=== PATIENT | female | born 1985 | race Caucasian/White ===

== ENCOUNTER 2024-06-16 11:40 | Outpatient (OUT) | payer MEDICARE, SELFPAY ==
[2024-06-16 13:20] LABS: Alanine Aminotransferase 22 U/L (14-59); Albumin Globulin Ratio 1.1; Albumin Level 3.9 g/dL (3.4-5.0); Alkaline Phosphatase 87 U/L (46-116); Anion Gap 12.8; Aspartate Amino Transferase 15 U/L (15-37); BUN Creatinine Ratio 7.5; Bilirubin Total 0.3 mg/dL (0.2-1.0); Calcium 9.1 mg/dL (8.5-10.1); Carbon Dioxide 28.1 mmol/L (21.0-32.0); Chloride 104 mmol/L (98-107); Estimated GFR (African America >60 (>=60 mL/min/1.73m^2); Estimated GFR (Non-African Ame 59 (>=60 mL/min/1.73m^2); Globulin 3.6 g/dL; Glucose 83 mg/dL (74-106); Potassium 3.9 mmol/L (3.5-5.1); Sodium 141 mmol/L (136-145); Total Protein 7.5 g/dL (6.4-8.2)
[2024-06-16 13:25] LABS: Free T4 0.73 ng/dL (0.76-1.46)
[2024-06-17 04:13] LABS: Lithium (Eskalith(R)), Serum 0.6 mmol/L (0.5-1.2)
[2024-06-17 12:08] LABS: Triiodothyronine (T3) 88 ng/dL (71-180)
== END 2024-06-16 11:41 | disposition home or self-care (01) ==
LOC: LAB 11:40
DX: Z79.899 Other long term (current) drug therapy (principal); R94.6 Abnormal results of thyroid function studies
CPT/HCPCS: 36415; 80053; 80178; 84439; 84480

== ENCOUNTER 2024-11-07 15:41 | Outpatient (OUT) | payer MEDICARE, SELFPAY ==
--- OUTSIDE RECORDS SUMMARY | 2023-07-29 06:00 | XMS_ITS ---
Author Organization [facility] Address [address] [place] [address] Care Team Providers Care Physician Practice Market Manager Name Role Phone Alie Becerra Primary Care Provider REASON FOR VISIT EXAM Encounters Encounter Location Date Provider Diagnosis [address] [place] [address] 07/29/2023 Alie Becerra Plan Of Treatment No Information Progress Notes * JESE JUSTICEKRISTINEOB:[birth year] (38 yo F)Acc No.[id number]:07/29/2023 Patient: ENRIQUETA LYONS Provider: Paul Becerra DDS :1985 A ge:37 Y S ex:Female Date:07/29/2023 Address:[facility] [id number] Subjective: * Chief Complaints: * 1 . EXAM. * Medical History: Objective: * Vitals: Assessment: Plan: * Treatment: * Images: * Electronic signature of Júnior Becerra DDS on 11/07/2024 at 03:43 PM EDT Sign off status: Pending * Provider: Paul Becerra DDS Date: 07/29/2023 Generated for Krystina keys/Estefanía/eTransmitting on: 0 11/07/2024 03:43 PM EDT
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
--- OUTSIDE RECORDS SUMMARY | 2024-11-07 15:43 | XMS_ITS | Encounter Summary ---
Author Organization [facility] [facility] Address [address] [place] [address] Care Team Providers Care Phone Counselor Name Role Phone Mercy Muro MD Primary Care Provider [phone] Encounter Details Date Type Department Care Team (Late st Contact Info) Description 10/31/2019 Telephone [facility] [address] [place] [address] Delmy Hopson RCP Social History Tobacco Use Types Packs/Day Years Used Date Smoking Tobacco: Every Day Smokeless Tobacco: Never Comments:vapes Alcohol Use Standard Drinks/Week Comments Yes 0 (1 standard drink = 0.6 oz pur e alcohol) occasionally Comments No Sex and Gender Information Value Date Recorded Sex Assigned at Not on file Legal Sex Female 3:46 PM EDT Gender Identity Female 10/29/2017 3:55 PM EDT Sexual Orientation Not on file COVID-19 Exposure Response Date Recorded In the last month, have you been in contact with someone who was confirmed or suspected to have Coronavirus / COVID-19? No / Unsure 10/31/2019 9:21 PM EDT documented as of this encounter Plan of Treatment Not on file documented as of this encounter Visit Diagnoses Not on filedocumented in this encounter Care Teams Phone Counselor Relationship Specialty Start Date End Date Mercy Muro MD [address] [place] [phone] PCP - General Family Medicine 11/19/18 documented as of this encounter
--- OUTSIDE RECORDS SUMMARY | 2024-11-07 15:43 | XMS_ITS | Patient Health Record ---
Author Organization [facility] Address [address] [facility] [place] [address] Care Team Providers Care Gear Repairer Name Role Phone Alie Becerra Primary Care Provider [phone] Reason For Referral No Information Plan Of Treatment No Information
--- OUTSIDE RECORDS SUMMARY | 2024-11-07 15:43 | XMS_ITS | Encounter Summary ---
Author Organization [facility] Address [address] [place] [address] Care Team Providers Care Government Operations Consultant Name Role Phone Mercy Muro MD Primary Care Provider [phone] Encounter Details Date Type Department Care Team (Late st Contact Info) Description 12/13/2018 Telephone [facility] Urology [place] [id number] [facility] [address] [place] [address] Diane Antonio Social History Tobacco Use Types Packs/Day Years Used Date Smoking Tobacco: Every Day Cigarettes Smokeless Tobacco: Never Alcohol Use Standard Drinks/Week Comments Yes 0 (1 standard drink = 0.6 oz pur e alcohol) occasionally Comments No Sex and Gender Information Value Date Recorded Sex Assigned at Not on file Legal Sex Female 3:46 PM EDT Gender Identity Female 10/29/2017 3:55 PM EDT Sexual Orientation Not on file documented as of this encounter Miscellaneous Notes * Telephone Encounter - Diane Antonio - 12/13/2018 3:41 PM EDT LMOM documented in this encounter Plan of Treatment Not on file documented as of this encounter Visit Diagnoses Not on filedocumented in this encounter Additional Health Concerns Infection Onset Date Last Indicated Resolved Time COVID-19 Suspected 10/28/2019 10/28/2019 0 3:09 PM EDT documented as of this encounter Care Teams Government Operations Consultant Relationship Specialty Start Date End Date Mercy Muro MD [address] [place] [address] PCP - General Family Medicine 11/19/18 documented as of this encounter
--- OUTSIDE RECORDS SUMMARY | 2024-11-07 15:43 | XMS_ITS | Clinical Summary ---
Author Organization [employer] Address [address] [place] [address] Care Team Providers Care Substation Electrician Name Role Phone Mercy Muro MD Primary Care Provider [phone] Allergies No known active allergies Medications tolterodine (Detrol LA) 4 MG Cap SR 24HRIndications :Overactive bladder Take 1 capsule by mouth daily. 30 capsule 2 4 Active hydrocortisone (Anusol-HC) 2.5 % CreamIndication s:External hemorrhoid, thrombosed Apply 1 Application topically daily. 28 g 3 4 Active Active Problems Problem Noted Date Diagnosed Date Obesity: body mass index of 30.0-34.9 10/18/2019 Alcohol abuse 05/08/2019 Chronic bilateral low back pain without sciatica 12/13/2018 Overview (01/25/2019): Prior history of lifting a heavy box, and back giving out and falling to floor. Chiropractor helps at first then pain returns. Last Assessment & Plan: Will add flexeril, continue ibuprofen, add lidoderm patch. Recommend follow up with PCP to get workup and xrays. Likely will need physical therapy. Smoking 1/2 pack a day or less 12/13/2018 Overview (01/25/2019): Last Assessment & Plan: Offer nicotine patch, and encourage cessation. Alcohol abuse 12/08/2018 Overview (01/25/2019): Last Assessment & Plan: Recommend AA, outpt therapy Severe episode of recurrent major depressive disorder, without psychotic features 12/06/2018 Overview (01/25/2019): Last Assessment & Plan: Per attending psychiatrist Hematuria 11/23/2018 Primary dysmenorrhea 10/30/2017 Immunizations Immunization Administration Dates Next Due [id number] COVID-19 monovalen t vaccine (Moderna), 12yr+, 100mcg/0.5mL 09/14/2020,08/17/2020 Family History Medical History Relation Name Comments Myocardial Infarction Father Sleep Apnea Father Diabetes Mother Myocardial Infarction Mother No known problems Sister Relation Name Status Comments Father Mother Alive Sister Social History Tobacco Use Types Packs/Day Years [...] PM EDT Sexual Orientation Not on file Last Filed Vital Signs Vital Sign Reading Time Taken Comments Blood Pressure 127/89 09/01/2023 8:06 AM EDT Pulse 74 09/01/2023 8:06 AM EDT Temperature 37.1 C (98.8 F) 03/07/2021 7:54 AM EDT Respiratory Rate 16 05/01/2023 10:12 AM EST Oxygen Saturation 99% 02/23/2023 10:06 AM EDT Inhaled Oxygen Concentration - - Weight 84.8 kg (187 lb) 09/01/2023 8:06 AM EDT Height 157.5 cm (5' 2 ) 05/01/2023 10:12 AM EST Body Mass Index 34.2 05/01/2023 10:12 AM EST Plan of Treatment Health Maintenance Due Date Last Done Comments HEP B VACCINE (1 of 3 - 19+ 3-dose series) 12/16/2006 PNEUMOCOCCAL VACCINE SERIES (1 of 2 - PCV) 12/16/2006 TDAP (ADULT) 12/16/2006 TETANUS 12/28/2011 12/27/2001 COVID-19 VACCINE ( - 2023- season) 2024 04/11/2022, 04/11/2021, 09/14/2020, Additional history exists CERVICAL CANCER SCREENING DISCUSSION 04/14/2024 04/14/2023, 10/28/2019 INFLUENZA VACCINE (Season Ended) 2025 02/10/2023, 03/18/2022, 02/09/2021 HEPATITIS C VIRUS SCREENING Completed 05/25/2017 HIV SCREENING DISCUSSION Completed 05/25/2017 HPV VACCINE Aged Out No longer eligi ble based on patient's age to complete this topic Procedures Procedure Name Priority Date/Time Associated Diagnosis Comments OUTSIDE PAP SMEAR Routine 04/14/2023 2:11 PM EST from Last 3 Months or Most Recently Relevant to Health Maintenance Results * PAP SMEAR (OUTSIDE) (04/14/2023 2:11 PM EST) us Historical Provider CYTOLOGY Final Result from Last 3 Months or Most Recently Relevant to Health Maintenance Insurance MEDICARE A AND B Care Teams Substation Electrician Relationship Specialty Start Date End Date Mercy Muro MD [address] [place] [address] PCP - General Family Medicine 11/19/18
[2024-11-07 16:13] LABS: Hemoglobin 12.6 g/dL (12.0-16.0)
[2024-11-07 16:37] LABS: Alanine Aminotransferase 13 U/L (14-59); Albumin Globulin Ratio 0.9; Albumin Level 3.4 g/dL (3.4-5.0); Alkaline Phosphatase 69 U/L (46-116); Anion Gap 14.3; Aspartate Amino Transferase 9 U/L (15-37); BUN Creatinine Ratio 11.1; Bilirubin Total 0.3 mg/dL (0.2-1.0); Calcium 9.3 mg/dL (8.5-10.1); Carbon Dioxide 25.9 mmol/L (21.0-32.0); Chloride 104 mmol/L (98-107); Estimated GFR (African America >60 (>=60 mL/min/1.73m^2); Estimated GFR (Non-African Ame >60 (>=60 mL/min/1.73m^2); Globulin 3.8 g/dL; Glucose 84 mg/dL (74-106); Potassium 4.2 mmol/L (3.5-5.1); Sodium 140 mmol/L (136-145); Total Protein 7.2 g/dL (6.4-8.2)
== END 2024-11-07 15:42 | disposition home or self-care (01) ==
LOC: LAB 15:41
DX: F31.73 Bipolar disorder, in partial remission, most recent episode manic (principal)
CPT/HCPCS: 36415; 80053; 80165; 85014; 85018